=== PATIENT | male | born 1965 | race Caucasian/White ===

== ENCOUNTER 2019-05-11 10:55 | Outpatient (RCR) | payer OTHER | END 2019-05-12 | LOC: PT 10:55 | PROVIDERS: ATTEND Specialist | DX: M54.12 Radiculopathy, cervical region (principal) ==

== ENCOUNTER 2019-06-06 13:00 | Outpatient (RCR) | payer OTHER | END 2019-06-11 | LOC: PT 13:00 | PROVIDERS: ATTEND Specialist | DX: M54.12 Radiculopathy, cervical region (principal) ==